=== PATIENT | male | born 1990 | race Caucasian/White ===

== ENCOUNTER 2017-11-14 09:48 | Emergency (ER) | payer OTHER ==
[2017-11-14 09:56] VITALS: BP 140/78; PULSE 65; TEMP 98.2; BMI 26.9
[2017-11-14] MEDS ORDERED: DIPHTH,PERTUSS(ACELL),TET 0.5 ML DISP.SYRIN IM ONE (11:34)
--- NOTE | 2017-11-14 11:39 | PDOC ---
History of Present Illness - General Chief Complaint: Foreign Body (FB) Stated Complaint: EYE PROBLEM Time Seen by Provider: 11/14/17 11:16 - History of Present Illness Initial Comments: 27-year-old male without comorbidities presents for evaluation of left eye irritation. He states he was taking out the garbage last night and a foreign body was into his left eye he is unsure why. Since that time his had blurry vision tearing and irritation no other symptoms 11/14/17 11:35 Past History - Past Medical History Allergies/Adverse Reactions: Allergies Allergy/AdvReac Type Severity Reaction Status Date / Time No Known Allergies Allergy Verified 11/14/17 09:56 Home Medications: Ambulatory Orders Tobramycin 0.3% Ophth Soln [Tobrex Ophthalmic Solution -] 1 drop OU Q4HWA #1 bottle 11/14/17 - Suicide/Smoking/Psychosocial Hx Smoking History: Never smoked Have you smoked in the past 12 months: No Information on smoking cessation initiated: No Hx Alcohol Use: No Drug/Substance Use Hx: No Review of Systems - Review of Systems HEENTM: Yes: See HPI, Eye Pain, Blurred Vision, Tearing All Other Systems: Reviewed and Negative *Physical Exam - Vital Signs Last Vital Signs Temp Pulse Resp BP Pulse Ox 98.2 F 65 16 140/78 100 11/14/17 09:54 11/14/17 09:54 11/14/17 09:54 11/14/17 09:54 11/14/17 09:54 - Physical Exam Comments: HEAD: NC/AT EYES: Right eye is normal, left thigh is injected with purulent yellow drainage , fluoresceins stain shows a large corneal abrasion I do not appreciate any foreign body. MS: Full ROM in all joints without edema NEUROLOGIC: No gross sensory or motor deficits, NVID SKIN: Normal color and temperature no lesions or rashes 11/14/17 11:36 *DC/Admit/Observation/Transfer Diagnosis at time of Disposition: Corneal abrasion - Discharge Dispostion Disposition: HOME Condition at time of disposition: Stable Decision to Admit order: No - Prescriptions Prescriptions: Tobramycin 0.3% Ophth Soln [Tobrex Ophthalmic Solution -] 1 drop OU Q4HWA #1 bottle - Referrals Referrals: Song Ferreira MD [Staff Physician] - - Patient Instructions Printed Discharge Instructions: DI for Corneal Abrasion, Corneal Abrasion Additional Instructions: Regrese a la spenser de emergencias si los sntomas empeoran o no se resuelven. Llame a oftalmologa hoy y nicole un seguimiento hoy o maana. Use las gotas de antibiticos segn las indicaciones. Es muy importante que nicole un seguimiento con oftalmologa. tiene un cuerpo extrao en [place]. No lo vi hoy, sin embargo, si juventino que hay un isaías que necesita ser eliminada. Print Language: URUGUAYAN - Post Discharge Activity
== END 2017-11-14 11:48 | disposition home or self-care (01) ==
LOC: JERFT 09:48
PROC: 3E0234Z Introduction of Serum, Toxoid and Vaccine into Muscle, Percutaneous Approach (ICD-10-PCS; principal; 2017-11-14)
DX: S05.02XA Injury of conjunctiva and corneal abrasion without foreign body, left eye, initial encounter (principal); X58.XXXA Exposure to other specified factors, initial encounter; Y93.89 Activity, other specified; Y92.89 Other specified places as the place of occurrence of the external cause
CPT/HCPCS: 90471; 90715; 99281-25

== ENCOUNTER 2021-07-23 10:13 | Emergency (ER) | payer OTHER ==
[2021-07-23 10:21] VITALS: BP 120/74; PULSE 70; TEMP 97.6; BMI 32.3
[2021-07-23 13:16] LABS: BASO % 0.5 % (0-2.0); EOS % 1.4 % (0-4.5); HEMATOCRIT 41.3 % (35.4-49); LYMPH % 14.8 % (8-40); MCH 28.5 pg (25.7-33.7); MCHC 33.9 g/dl (32.0-35.9); MEAN CELL VOLUME 84.2 fl (80-96); MONO % 7.9 % (3.8-10.2); NEUT % 75.4 % (42.8-82.8); PLATELET COUNT 200 10^3/uL (134-434); RDW 13.4 % (11.9-15.9); WHITE BLOOD COUNT 6.1 K/mm3 (4.0-10.0)
[2021-07-23 13:34] LABS: BLOOD UREA NITROGEN 19.6 mg/dL (7-18); CALCIUM 8.9 mg/dL (8.5-10.1)
[2021-07-23 13:38] LABS: CREATININE 0.9 mg/dL (0.55-1.3)
[2021-07-23 13:39] LABS: BILIRUBIN,TOTAL 1.1 mg/dL (0.2-1); TOT PROT 7.5 g/dl (6.4-8.2)
[2021-07-23] MEDS ORDERED: KETOROLAC TROMETHAMINE 30 MG/1 ML VIAL IM ONE (14:48)
[2021-07-23] MEDS ORDERED: KETOROLAC TROMETHAMINE 30 MG/1 ML VIAL ONE (14:49)
== END 2021-07-23 15:10 | disposition home or self-care (01) ==
LOC: JERFT 10:13 → JER 10:13 → JERFT 15:10
PROC: 3E023GC Introduction of Other Therapeutic Substance into Muscle, Percutaneous Approach (ICD-10-PCS; principal; 2021-07-23)
DX: R59.0 Localized enlarged lymph nodes (principal)
CPT/HCPCS: 36415; 80053; 85025; 93971-TC; 99284-25

== ENCOUNTER 2021-09-20 07:19 | Emergency (ER) | payer OTHER ==
[2021-09-20 07:26] VITALS: BP 130/80; PULSE 79; RESP 18; BMI 32.3
[2021-09-20] MEDS ORDERED: IBUPROFEN 400 MG TABLET (FP) PO ONE ×2 (08:35→08:49)
[2021-09-20 09:02] VITALS: TEMP 98.3
== END 2021-09-20 10:26 | disposition home or self-care (01) ==
LOC: JER 07:19
DX: M25.561 Pain in right knee (principal); M70.41 Prepatellar bursitis, right knee
CPT/HCPCS: 73564-TC-RT-FY; 99284-25